=== PATIENT | male | born 1960 | race Two or more races ===

== ENCOUNTER 2025-04-15 13:27 | Emergency (ER) | payer OTHER ==
[~2025-04-15] VITALS: Ht 182.9 cm; Wt 79.4 kg
[2025-04-15] MEDS ORDERED: ATORVASTATIN CA40 MG (13:44)
[2025-04-15] MEDS ORDERED: ATACAND32 MG (13:44)
[2025-04-15] MEDS ORDERED: NASAL MIST126 ML (13:44)
[2025-04-15] MEDS ORDERED: TOPROL XL100 M1 (13:44)
[2025-04-15] MEDS ORDERED: SERTRALINE20 MG/1 ML (13:45)
[2025-04-15] MEDS ORDERED: 0.9 % SODIUM CHLORIDE 1,000 ML IV SCH (13:45)
[2025-04-15 14:19] LABS: BASO % 0.2 % (0.1-1.2); EOS # 0.05 (0.04-0.54); EOS % 0.5 % (0.7-7.0); LYMPH # 1.46 (1.18-3.74); LYMPH % 16.0 % (19.3-53.1); MEAN PLATELET VOLUME 10.20 fl (9.4-12.4); MONO # 0.69 (0.24-0.82); MONO % 7.5 % (4.7-12.5); NEUT # 6.90 (1.56-6.13); NEUT % 75.6 % (34.0-71.1); RED CELL DISTRIBUTION WIDTH 12.9 % (11.6-14.4)
[2025-04-15 14:31] LABS: ALT/SGPT 28.0 U/L (12-78); AST/SGOT 18.0 U/L (15-37); BILIRUBIN TOTAL 0.86 mg/dL (0.3-1.2); BUN CREA RATIO 17.0 (7.0-25.0); CREATININE SERUM 1.35 mg/dL (0.70-1.30); GFR 52.88; GLOBULINA 3.2 G/DL (2.4-3.5); GLUCOSE FASTING 137.0 mg/dL (65-100); OSMOLALITY SERUM 293.0 MOSM/KG (275-295)
[2025-04-15 14:42] LABS: URINE APPEARANCE Clear; URINE BILIRRUBIN Negative (NEGATIVE); URINE BLOOD Small; URINE COLOR Yellow; URINE KETONE Trace (NEGATIVE); URINE LEUKOCYTE Negative; URINE NITRATE Negative; URINE PROTEIN 30 (NEGATIVE); URINE UROBILINOGEN 1.0 E.U./dl
[2025-04-15 14:46] LABS: URINE BACTERIA 22.7 uL (0.0-1933); URINE CAST 4.69 uL (0.0-1.40); URINE EPITHELIAL CELLS 20.9 uL (0.0-38.8); URINE RBC 6.4 uL (0.0-20.8); URINE WBC 8.7 uL (0.0-23.2)
[2025-04-15 14:59] LABS: TYPE CELLS SQUAMOUS; URINE CRYSTALS FEW /HPF; URINE GLUCOSE 100 MG/DL (NEGATIVE)
== END 2025-04-15 21:09 | disposition designated cancer center or children's hospital (05) ==
LOC: ER 13:27
PROVIDERS: Emergency Medicine
DX: S06.5XAA Traumatic subdural hemorrhage with loss of consciousness status unknown, initial encounter (principal); X58.XXXA Exposure to other specified factors, initial encounter; Y93.89 Activity, other specified; Y92.098 Other place in other non-institutional residence as the place of occurrence of the external cause; Y99.8 Other external cause status; R55 Syncope and collapse; R53.1 Weakness; I10 Essential (primary) hypertension; Z91.013 Allergy to seafood
CPT/HCPCS: 36415; 70450; 93005; 96365; 96366; 99285; J7030